=== PATIENT | female | born 1950 | race Caucasian/White ===

== ENCOUNTER 2019-09-02 17:30 | Emergency (ER) | payer MEDICARE, MEDICAID ==
[~2019-09-02] VITALS: Ht 170.2 cm; Wt 75.0 kg
--- NOTE | 2019-09-02 17:35 | NUR ---
NO ANSWER FROM TRIAGE
[2019-09-02 17:53] VITALS: BP 116/54
--- NOTE | 2019-09-02 17:58 | NUR ---
OLGA. REPORT RECEIVED FROM EMS. PT C/O CP/SOB SINCE MONDAY AND N/V/D STARTED TODAY. PT'S AOX4. RESPS EVEN AND UNLABORED. ALL MONITORS IN PLACE. CALL LIGHT WITHIN REACH. NSR RATE 90'S ON FLUE BLOWER AT THIS TIME.
[2019-09-02] MEDS ORDERED: ASPI-496 PO (17:59)
[2019-09-02] MEDS ORDERED: ATOR40TA78 PO (17:59)
[2019-09-02] MEDS ORDERED: FLUO10CA7 PO (18:00)
[2019-09-02] MEDS ORDERED: FLUT1DIS IH (18:00)
[2019-09-02] MEDS ORDERED: OXYB5TAB10 PO (18:01)
[2019-09-02] MEDS ORDERED: QUET25TA5 PO (18:01)
[2019-09-02] MEDS ORDERED: NITR100C56 PO (18:01)
[2019-09-02] MEDS ORDERED: ONDANSETRON 2MG/ML, 2ML ONE (18:17)
[2019-09-02] MEDS ORDERED: MORPHINE SULFATE 4 MG/ML, 1ML ONE (18:17)
[2019-09-02] MEDS ORDERED: MORPHINE SULFATE 4 MG/ML, 1ML IVPush PRN (18:30)
[2019-09-02] MEDS ORDERED: SODIUM CHLORIDE FLUSH 10ML SYR IVF ONE (18:30)
[2019-09-02] MEDS ORDERED: ONDANSETRON 2MG/ML, 2ML IVPush ONE (18:30)
[2019-09-02 18:37] LABS: MEAN CORPUSCULAR HEMOGLOBIN 21.1 pg (27.0-34.8); MEAN CORPUSCULAR VOLUME 70.3 fL (80-100); MEAN PLATELET VOLUME 7.2 fL (7.4-10.4); PLATELET COUNT 295 x10^3/uL (130-400); RED BLOOD COUNT 4.56 x10^6/uL (3.82-5.3); RED CELL DISTRIBUTION WIDTH 22.8 % (9.6-15.2)
--- NOTE | 2019-09-02 18:37 | NUR ---
pt amb to br and back to room with steady gait. pt provided urine sample.
[2019-09-02 18:41] LABS: ALBUMIN 3.4 g/dL (3.4-5.0); ANION GAP 13 mmol/L (5-15); CALCIUM 8.6 mg/dL (8.5-10.1); CHLORIDE 101 mmol/L (98-107)
[2019-09-02 18:45] LABS: ALANINE AMINOTRANSFERASE 20 U/L (12-78); ALKALINE PHOSPHATASE 113 U/L (45-117); BILIRUBIN,TOTAL 0.4 mg/dL (0.2-1.0); CREATININE 0.87 mg/dL (0.55-1.02); TOTAL PROTEIN 8.3 g/dL (6.4-8.2); TROPONIN I < 0.015 ng/mL (0.000-0.045)
--- NOTE | 2019-09-02 18:55 | NUR ---
report given to seema betts.
[2019-09-02 19:09] LABS: MD YES
[2019-09-02 19:10] LABS: MICROSCOPIC NOT IND
[2019-09-02 19:13] LABS: BASOS#(MANUAL) 0.07 x10^3/uL (0-0.1); BASOS% (MANUAL) 1 % (0-1); EOS#(MANUAL) 0.07 x10^3/uL (0.0-0.4); EOS% (MANUAL) 1 % (1-7); LYMPH#(MANUAL) 1.58 x10^3/uL (1-3.4); LYMPHS% (MANUAL) 24 % (22-44); MONOS#(MANUAL) 0.53 x10^3/uL (0.3-2.7); MONOS% (MANUAL) 8 % (2-9); SEG#(MANUAL) 4.36 x10^3/uL (1.8-6.8); SEGS% (MANUAL) 66 % (42-75)
[2019-09-02 19:15] LABS: <PLATELET ESTIMATE> ADEQUATE; <PLT MORPHOLOGY> NORMAL PLT MORPH; HYPOCHROMIA 2+; MICROCYTOSIS 1+; OVALOCYTES 1+; POLYCHROMASIA 1+
[2019-09-02] MEDS ORDERED: HYDROcodone/APAP 5/325 TABLET ONE (19:17)
[2019-09-02] MEDS ORDERED: HYDROcodone/APAP 5/325 TABLET PO ONE (19:30)
[2019-09-02 19:32] LABS: CULTURE INDICATED? NO
== END 2019-09-02 20:26 ==
LOC: ED 20:20
DX: R07.2 Precordial pain (principal); R06.00 Dyspnea, unspecified; I50.22 Chronic systolic (congestive) heart failure; D63.8 Anemia in other chronic diseases classified elsewhere
CPT/HCPCS: 36415; 71045; 80053; 81003; 83690; 83880; 84484; 85025; 93005; 99284